=== PATIENT | female | born 1990 | race Hispanic/Latino ===

== ENCOUNTER 2025-01-24 08:46 | Emergency (ER) | payer SELFPAY ==
[2025-01-24 08:50] VITALS: BP 101/76
[2025-01-24 11:32] VITALS: BP 97/63
--- NOTE | 2025-01-24 11:58 | ED.GENMED ---
History of Present Illness
General
Chief Complaint: Back Pain
Time Seen by Provider: 01/24/25 11:34
History of Present Illness
History of Present Illness:
34-year-old female with no known past medical history presents to the emergency department for evaluation of neck and upper back pain has been ongoing for the past month. Denies any injuries or falls. Pain seems to be worse at this provide her
from sleeping well. Denies any radicular pain into the arms or paresthesias. She notes that the pain in the neck does worsen when she raises the arms or lift things overhead. Denies any dyspnea or chest pain. No night sweats or weight loss.
Past History
Past History
ED Past Medical History: None
Social History
Living: with family
Employment: Employed
Review of Systems
Review of Systems
Allergies reviewed?: Yes
All Other Systems: ROS reviewed and negative except as documented in HPI and ROS
Phy Exam
Physical Exam
Physical Exam:
GEN: Well appearing, NAD, WDWN
HEENT: Oral mucosa moist, no scleral icterus
Cardiac: Regular rate
Lung: No respiratory distress, no tachypnea
MSK: No gross deformity or injuries. No midline cervical or thoracic spinal tenderness. There is diffuse tenderness elicited across the trapezius musculature as well as the rhomboid musculature bilaterally. Cervical range of motion is normal with
increased pain noted during rotation.
Skin: Good color, no pallor or jaundice, no rashes
Neuro: AO x3, moves all extremities freely, bilateral upper extremity strength 5 out of 5 in all knapp, radial pulses strong
Psych: Calm, cooperative
Course
Vital Signs
Initial and Last Documented VS:
Initial Vital Signs
Temp Pulse Resp BP Pulse Ox
97.4 F 71 18 101/76 98
01/24/25 08:50 01/24/25 08:50 01/24/25 08:50 01/24/25 08:50 01/24/25 08:50
Last Documented Vital Signs
Temp Pulse Resp BP Pulse Ox
97.4 F 65 13 100/64 100
01/24/25 08:50 01/24/25 12:41 01/24/25 12:41 01/24/25 12:41 01/24/25 12:41
MDM/Problems Addressed
MDM/Problems Addressed:
This is likely cervical myofascial pain. She has no neurologic findings in the upper extremities concerning for spinal cord lesion or vascular etiology. No constitutional symptoms concerning for malignancy. Will treat supportively with NSAIDs and
muscle relaxants, recommend she follow-up with her primary care physician if not improving as a cervical spine or thoracic spine MRI may be prudent. No imaging needed from the ED as there was no reported trauma
*Pulse Oximetry
SaO2: 100
Oxygen Mode of Delivery: Room air
Patient hypoxic: no
*Critical Care Note
Total Time (30-74mins, 75-104mins- exclusive of procedures): Not Applicable
ED Attending Note
-
Portions of this chart may have been created with voice recognition software.� Occasional wrong word or��sound alike� substitutions may have occurred due to the inherent limitations of voice recognition software.
Discharge Plan
Departure
Patient Disposition: Home (Routine Discharge)
Date of Disposition: 01/24/25
Time of Disposition: 11:58
Patient with high blood pressure during this ER visit?: No
Discharge Problem:
Cervical myofascial pain syndrome
Instructions: Upper Back Pain (DC)
Prescriptions:
New
celecoxib 200 mg capsule
200 mg PO BID Qty: 20 0RF
methocarbamol 750 mg tablet
750 - 1,500 mg PO Q8H PRN (Reason: pain) Qty: 20 0RF
Referrals:
NONE,* [Family Provider, Internal Medicine]
Activity Restrictions/Additional Instructions:
[facility]
[phone] [place] [address]
TISHA V[place] [id number]
Do not take any [id number] medications with the medicines I have prescribed you. The muscle relaxant may make you tired and you should take 2 tablets at nighttime before sleep
Follow-up with your primary care physician/[facility] to discuss the benefits of an outpatient MRI of your neck and/or upper back if pain continues
If you develop numbness or weakness of the arms, chest pain, or weight loss please do not hesitate to return to the emergency department for further evaluation
No tome natalie�n medicamento de venta pearl junto con los medicamentos que le he recetado. El relajante muscular puede causarle somnolencia, por lo que debe sunil dos comprimidos por la noche antes de acostarse.
Consulte con mcdonough m�dico de cabecera o en la cl�kathryn de dar gratuita para hablar sobre los beneficios de violet resonancia magn�burke ambulatoria del helio y/o la parte superior de la espalda si el dolor persiste.
Si presenta entumecimiento o debilidad en los brazos, dolor en el pecho o p�rdida de peso, no dude en regresar al servicio de urgencias para violet evaluaci�n adicional.
Interventions
Interventions:
*General Assessment Last Done: 01/24/25 11:31
*Neglect/Abuse Screening Last Done: 01/24/25 11:31
*ED COVID-19 Vaccine History Last Done: 01/24/25 11:31
*ED Influenza Vaccine History Last Done: 01/24/25 11:31
[facility] Risk Assessment Tool Last Done: 01/24/25 11:36
*Risk Screen - Suicide (C-SSRS) Last Done: 01/24/25 08:50
*Nursing Disposition Last Done: 01/24/25 12:41
ED-Musculoskeletal Assessment Last Done: 01/24/25 11:40
Discharge Date and Time
Discharge Date/Time: 01/24/25 12:46
Print Language: CITIZ[place]
[2025-01-24 12:41] VITALS: BP 100/64
== END 2025-01-24 12:46 | disposition home or self-care (01) ==
LOC: EMR 08:46
PROVIDERS: EMERGENCY PHYSICIAN Emergency Medicine
DX: M79.18 Myalgia, other site (principal); M54.2 Cervicalgia; M54.6 Pain in thoracic spine
CPT/HCPCS: 99282